=== PATIENT | female | born 1995 | race Caucasian/White ===

== ENCOUNTER 2017-12-14 14:33 | Emergency (ER) | payer BC ==
[2017-12-14 15:26] VITALS: BP 111/58
--- NOTE | 2017-12-14 15:45 | UC ---
Lower Extremity/Ankle HPI - HPI Summary HPI Summary: Pt c/o left ankle pain and swelling after "rolling" left ankle while playing lacrosse today. Pt c/o sudden onset of pain and swelling to left lateral malleolus ~ 1 hour ago. C/o pain with weight bearing - History of Current Complaint Chief Complaint: UCTrauma Stated Complaint: LEFT ANKLE INJURY Time Seen by Provider: 12/14/17 15:36 Hx Obtained From: Patient Hx Last Menstrual Period: 11/14/17 ?: No Onset/Duration: Sudden Onset, Still Present Severity Initially: Moderate Severity Currently: Moderate Pain Intensity: 8 Aggravating Factor(s): Standing, Ambulation Alleviating Factor(s): Rest, Elevation Able to Bear Weight: No - Risk Factors Gout Risk Factors: Negative DVT Risk Factors: Negative Septic Arthritis Risk Factor: Negative - Allergies/Home Medications Allergies/Adverse Reactions: Allergies Allergy/AdvReac Type Severity Reaction Status Date / Time cefuroxime [From Ceftin] Allergy Intermediate Hives Verified 12/14/17 15:26 Home Medications: Home Medications NK [No Home Medications Reported] 12/14/17 [History Confirmed 12/14/17] PMH/Surg Hx/FS Hx/Imm Hx Previously Healthy: Yes - Surgical History Surgical History: Yes Surgery Procedure, Year, and Place: Tonsillectomy - Family History Known Family History: Positive: Cardiac Disease - Social History Occupation: Student - [employer] Lives: Dormitory/Roommates Alcohol Use: Weekly Substance Use Type: None Smoking Status (MU): Never Smoked Tobacco Have You Smoked in the Last Year: No Review of Systems Constitutional: Negative Skin: Negative Eyes: Negative ENT: Negative Respiratory: Negative Cardiovascular: Negative Gastrointestinal: Negative Genitourinary: Negative Motor: Decreased ROM - left ankle Neurovascular: Negative Musculoskeletal: Arthralgia, Decreased ROM, Edema, Myalgia Neurological: Negative Psychological: Negative Is Patient Immunocompromised?: No All Other Systems Reviewed And Are Negative: Yes Physical Exam Triage Information Reviewed: Yes Appearance: Well-Appearing Vital Signs: Initial Vital Signs Temp 98.7 F 12/14/17 15:20 Pulse 61 12/14/17 15:20 Resp 18 12/14/17 15:20 BP 111/58 12/14/17 15:20 Pulse Ox 100 12/14/17 15:20 Vital Signs Reviewed: Yes Eye Exam: Normal ENT Exam: Normal Dental Exam: Normal Neck exam: Normal Respiratory Exam: Normal Respiratory: Positive: No respiratory distress Cardiovascular Exam: Normal Musculoskeletal: Positive: Strength Limited @ - left ankle, ROM Limited @ - left lateral malleolus, Edema @ - left ankle Neurological Exam: Normal Psychological Exam: Normal Skin Exam: Normal Lower Extremity Course/Dx - Differential Dx/Diagnosis Differential Diagnosis/HQI/PQRI: Fracture (Closed), Sprain Provider Diagnoses: left ankle sprain Discharge - Sign-Out/Discharge Documenting (check all that apply): Patient Departure All imaging exams completed and their final reports reviewed: Yes - Discharge Plan Condition: Stable Disposition: HOME Patient Education Materials: Ankle Sprain (ED), R.I.C.E. Treatment (ED) Referrals: [facility] [Outside] - If Needed Sander Forte MD [Medical Doctor] - If Needed Tayler Bucio MD [Medical Doctor] - If Needed No Primary Care Phys,NOPCP [Primary Care Provider] - Additional Instructions: Please follow up with your PCP or orthopedic provider as needed. - Billing Disposition and Condition Condition: STABLE Disposition: Home
--- NOTE | 2017-12-14 16:04 | RAD ---
INDICATION: Left ankle pain after inversion injury playing field hockey COMPARISON: None. TECHNIQUE: 3 views of the left ankle were obtained. FINDINGS: Overlying the fibular malleolus there is a [id number] amount of soft tissue swelling. The well corticated bones exhibit normal alignment. Joint spaces appear maintained. No fracture is seen. IMPRESSION: MILD TO MODERATE SOFT TISSUE SWELLING OVERLYING THE FIBULAR MALLEOLUS WITHOUT RADIOGRAPHICALLY APPARENT UNDERLYING FRACTURE OR DISLOCATION. If the patient's symptoms persist, follow-up imaging is recommended.
== END 2017-12-14 16:23 | disposition home or self-care (01) ==
LOC: UCCORT 14:33
DX: S93.402A Sprain of unspecified ligament of left ankle, initial encounter (principal); X50.0XXA Overexertion from strenuous movement or load, initial encounter; Y93.65 Activity, lacrosse and field hockey; Y92.39 Other specified sports and athletic area as the place of occurrence of the external cause; Z88.3 Allergy status to other anti-infective agents
CPT/HCPCS: 99202; G0463